=== PATIENT | female | born 1940 | race Caucasian/White ===

== ENCOUNTER 2017-04-13 16:51 | Emergency (ER) | payer MEDICARE, OTHER ==
[~2017-04-13] VITALS: Ht 165.1 cm; Wt 63.5 kg
[~2017-04-13 16:51] MED LIST: ABILIFY5 MG; ACETAMINOPHEN325 M1 PO; ASPIRIN EC325 MG PO; AZITHROMYCIN250 MG PO; CIPRO500 MG PO; COUMADIN1 MG PO; COUMADIN5 MG PO; DIGOXIN125 MCG PO; DILT-XR120 MG PO; DOXYCYCLINE HY100 MG PO; DOXYCYCLINE HYC50 MG PO; ERGOCALCIF50000 UNIT PO; HYDROCHLOROTHIA25 MG PO; METOPROLOL SUCC50 MG; METOPROLOL TAR100 MG PO; METOPROLOL TART25 MG PO; METOPROLOL TART50 MG PO; POTASSIUM CHLO10 MEQ PO; SLOW-MAG71.5 MG PO; TOBRAMYCIN-DEXAM5 ML OPTH; TRIAMCINOLONE A15 GM TOP; VENTOLIN HFA18 GM INH; WARFARIN SODIUM3 MG PO
[2017-04-13] MEDS ORDERED: METHYLPREDNISOLO4 M1 PO (17:34)
== END 2017-04-13 18:03 | disposition home or self-care (01) ==
LOC: ED 16:51
DX: M25.561 Pain in right knee (principal); I10 Essential (primary) hypertension; J45.909 Unspecified asthma, uncomplicated; I48.91 Unspecified atrial fibrillation; Z86.718 Personal history of other venous thrombosis and embolism; Z86.711 Personal history of pulmonary embolism; Z86.14 Personal history of Methicillin resistant Staphylococcus aureus infection; Z90.49 Acquired absence of other specified parts of digestive tract; Z90.710 Acquired absence of both cervix and uterus; Z90.89 Acquired absence of other organs; Z88.1 Allergy status to other antibiotic agents; Z88.5 Allergy status to narcotic agent; Z88.2 Allergy status to sulfonamides; Z88.8 Allergy status to other drugs, medicaments and biological substances; Z79.899 Other long term (current) drug therapy; Z79.01 Long term (current) use of anticoagulants
CPT/HCPCS: 99283

== ENCOUNTER 2017-08-19 10:27 | Emergency (ER) | payer MEDICARE, OTHER ==
[~2017-08-19] VITALS: Ht 165.1 cm; Wt 63.5 kg
--- OUTSIDE RECORDS SUMMARY | ~2017-08-19 | XMS | Clinical Summary ---
Demographics + + + | Address | [address] | | | [place] [address] | + + + | Home Phone | | + + + | Preferred Language | Unknown | + + + | Marital Status | | + + + | Mandaen Affiliation | Unknown | + + + | Race | Unknown | + + + | Ethnic Group | Other Race | + + + Author + + + | Author | [facility] | + + + | Organization | [facility] | + + + | Address | Unknown | + + + | Phone | Unavailable | + + + Care Team Providers + +------+ + | Care Word Processing Specialist Name | Role | Phone | + +------+ + PP | Unavailable | + +------+ + Source Comments SHANITA is fully live on both [facility] and [facility] Allergies Not on File Current Medications Not on file Active Problems Not on file Social History + +-------+ +--------+------+ | Tobacco [...] on file | | + + + Plan of Treatment + + + + + | Health Maintenance | Due Date | Last Done | Comments | + + + + + | INFLUENZA VACCINE | | | | | (FLU SHOT) | 7 | | | + + + + + Results Not on filefrom Last 3 Months"
--- OUTSIDE RECORDS SUMMARY | ~2017-08-19 | XMS | Clinical Summary ---
Demographics + + + | Address | [address] | | | [place] [address] | + + + | Home Phone | | + + + | Preferred Language | Unknown | + + + | Marital Status | | + + + | Voodoo Affiliation | Unknown | + + + [...] Team Providers + +------+ + | Care Commercial Representative Name | Role | Phone | + +------+ + PP | Unavailable | + +------+ + Source Comments SHANITA is fully live on both [facility] and [facility] Allergies Not on File Current Medications Not [...]
[~2017-08-19 10:27] MED LIST changes: +METHYLPREDNISOLO4 M1 PO
[2017-08-19] MEDS ORDERED: NORCO 5-325 TA1 EACH PO (12:22)
[2017-08-19] MEDS ORDERED: CIPRO250 MG PO (14:11)
[2017-10-01] MEDS ORDERED: METOPROLOL SUCC50 MG PO (09:36)
[2017-10-01] MEDS ORDERED: WARFARIN SODIUM1 MG PO (09:37)
[2017-10-01] MEDS ORDERED: ALLOPURINOL300 MG PO (09:37)
[2017-11-24] MEDS ORDERED: FUROSEMIDE20 MG PO (10:46)
[2017-12-08] MEDS ORDERED: FUROSEMIDE40 MG PO (10:01)
[2017-12-08] MEDS ORDERED: POTASSIUM CHLO10 ME1 PO (10:02)
== END 2017-08-19 12:40 | disposition home or self-care (01) ==
LOC: ED 10:27
DX: S00.12XA Contusion of left eyelid and periocular area, initial encounter (principal); S00.11XA Contusion of right eyelid and periocular area, initial encounter; N39.0 Urinary tract infection, site not specified; I10 Essential (primary) hypertension; J45.909 Unspecified asthma, uncomplicated; I48.91 Unspecified atrial fibrillation; Z88.1 Allergy status to other antibiotic agents; Z88.8 Allergy status to other drugs, medicaments and biological substances; Z88.5 Allergy status to narcotic agent; Z79.899 Other long term (current) drug therapy; Z79.01 Long term (current) use of anticoagulants; W22.8XXA Striking against or struck by other objects, initial encounter
CPT/HCPCS: 70450; 70486; 80048; 81001; 85025; 85610; 85730; 87077; 87088; 87186; 99284

== ENCOUNTER 2017-10-23 12:07 | Emergency (ER) | payer MEDICARE, OTHER ==
[~2017-10-23] VITALS: Ht 165.1 cm; Wt 63.5 kg
--- OUTSIDE RECORDS SUMMARY | ~2017-10-23 | XMS | Clinical Summary ---
Demographics + + + | Address | [address] | | | [place] [address] | + + + | Home Phone | | + + + | Preferred Language | Unknown | + + + | Marital Status | | + + + | Confucianist Affiliation | 1076 | + + + | Race | Unknown | + + + | Ethnic Group | Unknown | + + + Author + + + | Author | [facility] | | | and [place] | + + + | Organization | [facility] | | | and [place] | + + + | Address | Unknown | + + + | Phone | Unavailable | + + + Support + + + + + | Name | Relationship | Address | Phone | + + + + + | Lesvia Jernigan | ECON | [address] | | | | | [place] | | | | | [address] | | + + + + + Care Team Providers + +------+ + | Care Electrical Maintenance Mechanic Name | Role | Phone | + [...] + + + Current Medications + + +-------+---------+------+------+-------+ | Prescription | Sig. | Disp. | Refills | Star | End | Statu | | | | | | t | Date | s | | | | | | Date | | | + + +-------+---------+------+------+-------+ | aspirin 325 mg | Take 325 mg by mouth | | | | | Activ | | tablet | Daily. | | | | | e | + + +-------+---------+------+------+-------+ | dilTIAZem | Take 120 mg by mouth | | | | | Activ | | (CARDIZEM) 120 MG | 4 times daily. | | | | | e | | tablet | | | | | | | + + +-------+---------+------+------+-------+ | | Take 25 mg by mouth | | | | | Activ | | hydroCHLOROthiazide | Daily. | | | | | e | | 25 mg tablet | | | | | | | + + +-------+---------+------+------+-------+ | metoprolol | Take 50 mg by mouth | | | | | Activ | | succinate | Daily. | | | | | e | | (TOPROL-XL) 50 mg 24 | | | | | | | | hr tablet | | | | | | | + + +-------+---------+------+------+-------+ | | Take by mouth. | | | | | Activ | | Yxbpdbbdm-Rowtmwj-Df | | | | | | e | | lic Acid 400-200-1 | | | | | | | | MG TABS | | | | | | | + + +-------+---------+------+------+-------+ | triamcinolone | Apply topically 3 | | | | | Activ | [...] | | | | | + + +-------+---------+------+------+-------+ | albuterol | Inhale 2 puffs into | | | | | Activ | | (VENTOLIN HFA) 90 | the lungs every 6 | | | | | e | | mcg/puff inhaler | hours as needed for | | | | | | | | Wheezing. | | | | | | + + +-------+---------+------+------+-------+ | folic acid 1 mg | Take 1 mg by mouth | | | | | Activ | | tablet | Daily. | | | | | e | + + +-------+---------+------+------+-------+ | warfarin | Take 2 mg by mouth | | | | | Activ | | (COUMADIN) 2 mg | Daily. | | | | | e | | tablet | | | | | | | + + +-------+---------+------+------+-------+ | allopurinol | | | | 11/0 | | Activ | | (ZYLOPRIM) 100 mg | | | | 9/20 | | e | | tablet | | | | 17 | | | + + +-------+---------+------+------+-------+ | furosemide (LASIX) | | | | 09/2 | | Activ | | 80 mg tablet | | | | 07/11 | | e | | | | | | 17 | | | + + +-------+---------+------+------+-------+ | | | | | 11/1 | | Activ | | HYDROcodone-acetamin | | | | 09/08 | | e | | ophen (NORCO) 5-325 | | | | 17 | | | | mg per tablet | | | | | | | + + +-------+---------+------+------+-------+ | ketorolac (ACULAR) | | | | 11/2 | | Activ | | 0.4 % SOLN | | | | 01/08 | | e | | | | | | 17 | | | + + +-------+---------+------+------+-------+ | ofloxacin | | | | 11/2 | | Activ | | (OCUFLOX) 0.3% | | | | 5/20 | | e | | ophthalmic solution | | | | 17 | | | + + +-------+---------+------+------+-------+ | potassium chloride | | | | 09/2 | | Activ | | (MICRO-K) 10 mEq CR | | | | 1/20 | | e | | capsule | | | | 17 | | | + + +-------+---------+------+------+-------+ Active Problems + + + | Problem | Noted Date | + + + | Chronic atrial fibrillation (HCC) | 06/01/2017 | + + + | [...] + | Respiratory Rate | 13 | 06/01/2017 1540 PST | + + + + | Oxygen Saturation | 99% | 06/01/2017 1540 PST | + + [...] | | | | (Season Ended) | 8 | | | + + + + + Implants + +--------+--------+ +--------+--------+--------+ | Implanted | Type | Area | Manufacture | Device | Expira | Model | | | | | r | | tion | / | | | | | | Identi | Date | Serial | | | | | | fier | | / Lot | + +--------+--------+ +--------+--------+--------+ | Lens Ultrasert [id number] - | Generi | Right: | [employer] | | 11/19/ | [id number] | | [id number]: Qty: | c | Eye | - ALCN | | 2019 | .15.0 | | 1 on 04/20/2017 by Jeremy | | | | | | /[id number] | | Tony Sparks MD | | | | | | 412 | | | | | | | | 168 / | + +--------+--------+ +--------+--------+--------+ | Lens Ultrasert [id number] - | Generi | | [employer] | | 05/21/ | [id number] | | [id number]: Qty: | c | | - ALCN | | 2018 | .15.5 | | 1 on 06/01/2017 by Jeremy | | | | | | /[id number] | | Tony Sparks MD | | | | | | 376 | | | | | | | | 075 / | + +--------+--------+ +--------+--------+--------+ Results Not on filefrom Last 3 Months Insurance + +--------+ +--------+ +---------+ | Payer | Benefi | Subscriber | Type | Phone | Address | | | t Plan | ID | | | | | | / | | | | | | | Group | | | | | + +--------+ +--------+ +---------+ | [employer] | [employer] | xxxxxxxxxx | Indemn | | | | | [place] | | ity | | | | | LIFE | | | | | | | MDCR | | | | | | | SUPPL | | | | | + +--------+ +--------+ +---------+ | MEDICARE | MEDICA | xxxxxxxxxx | Medica | +1- | | | | RE | | re | [phone] | | | | PART A | | | | | | | AND B | | | | | + +--------+ +--------+ +---------+ + +--------+ +--------+ + + | Guarantor Name | Accoun | Relation to | Date | Phone | Billing Address | | | t Type | Patient | of | | | | | | | | | | + +--------+ +--------+ + + | SHARON ROBERTS | Person | Self [birth year] | Home: | [address] | | | al/Fam | | 1940 | [phone] [place] [address] | | | dulce maria | | | [phone] | | + +--------+ +--------+ + +
--- OUTSIDE RECORDS SUMMARY | ~2017-10-23 | XMS | Clinical Summary ---
Demographics + + + | Address | [address] | | | [place] [address] | + + + | Home Phone | | + + + | Preferred Language | Unknown | + + + | Marital Status | | + + + | Yarsanism Affiliation | 1069 | + + + | Race | Unknown | + + + | Ethnic Group | Unknown | + + + Author + + + | Author | [facility] | + + + | Organization | [facility] | + + + | Address | [...] | | + + +---------+ + | Lamont Parson | ECON | Unknown | | + + +---------+ + Care Team Providers + +------+ + | Care Registered Nurse Surgical Services Name | Role | Phone | + +------+ + | Mj No MD | PP | | + +------+ [...] | | | + + +---------+---------+------+------+-------+ | | Take 1 tablet by | | | | | Activ | | hydrocodone-acetamin | mouth every 6 (six) | | | | | e | | ophen (NORCO) 5-325 | hours as needed. | | | | | | | MG per tablet | | | | | | | + + +---------+---------+------+------+-------+ | Albuterol Sulfate | Inhale into the | | | | | Activ | | (VENTOLIN HFA IN) | lungs as needed. | | | | | e | + + +---------+---------+------+------+-------+ | Loperamide HCl | Take by mouth as | | | | | Activ | | (IMODIUM PO) | needed. | | | | | e | + + +---------+---------+------+------+-------+ | | Take 25 mg by mouth | | | | | Activ | | hydrochlorothiazide | daily. | | | | | e | | (HYDRODIURIL) 25 MG | | | | | | | | tablet | | | | | | | + + +---------+---------+------+------+-------+ | Magnesium Chloride | Take 535 mg by mouth | | | | | Activ | | (SLOW-MAG) 535 (64 | 2 (two) times | | | | | e | | MG) MG CR tablet | daily. | | | | | | + + +---------+---------+------+------+-------+ | aspirin 325 MG EC | Take 325 mg by mouth | | | | | Activ | | tablet | daily. | | | | | e | + + +---------+---------+------+------+-------+ | B COMPLEX [...] | | | | | | | days, [facility] | | | | | | [...] | | | + + +---------+---------+------+------+-------+ | metoprolol | Take 1 tablet by | 180 | 1 | 03/1 | | Activ | | (LOPRESSOR) 100 MG | mouth 2 (two) times | tablet | | 6/20 | | e | | tablet | daily. | | | 16 | | | + + +---------+---------+------+------+-------+ | diltiazem | TAKE ONE CAPSULE BY | 90 | 1 | 12/0 | | Activ | | (CARDIZEM CD) 120 MG | MOUTH EVERY DAY | capsule | | 6/20 | | e | | 24 hr capsule | | | | 16 | | | + + +---------+---------+------+------+-------+ Active Problems [...] | 04/19/2013 | + + + | Wound, open, knee, lower leg, or ankle with complication | 07/29/2011 | + + + + + | Last Assessment & Plan: Continue current wound care. | + + + + + | Neutropenia, unspecified | [...] | + + + + + | Elevated INR | 06/22/2011 | + + + | Cellulitis of left leg | 06/21/2011 | + + + + [...] understanding. 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 Continue Bactrim | | while awaiting progress. Followup in one month with repeat labs | | at that time. The patient was advised to call promptly if she has | | any recurrent redness, swelling, or fevers. 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 | | 75yo WF, with [...] Date | + + + + | Fever, unspecified | 07/03/19 | | | | 12 | 2 | + + + + Family History + + +------+ [...] | Yes | 2 | 1.2 | 2 drinks every day | | | Standard | | | [...] + + + | Blood Pressure | 108/76 | 01/02/2016 4:51 PM PDT | + + + + | Pulse | 75 | 01/02/2016 4:51 PM PDT | + + + + | Temperature | 36.2 C (97.2 F) | 04/19/2013 1:28 PM PDT | + + + + | Respiratory Rate | 17 | 01/02/2016 4:51 PM PDT | + + + + | Oxygen Saturation | 97% | 01/02/2016 4:51 PM PDT | + + + + | Inhaled Oxygen | - | - | | Concentration | | | + + + + | Weight | 75.3 kg (166 lb) | 01/02/2016 4:51 PM PDT | + + + + | Height | 168.9 cm (5' 6.5") | 01/02/2016 4:51 PM PDT | + + + + | Body Mass Index | 26.39 | 01/02/2016 4:51 PM PDT | + + + + Plan [...] +------+-------+ + | MEDICARE | MEDICA | xxxxxxxxxx | | | [address] | | | RE | | | | [place] [address] | | | IP-OP | | | | | + +--------+ +------+-------+ + | COMMERCIAL OTHER | TRANSA | xxxxxxxxx | | | | | | [place]ICA | | | | | | | LIFE | | | | | + +--------+ [...] | Self | [birth year] | Home: | [address] | | | lisa/[place]uan | | 1940 | [phone] | [place] | | | dulce maria | | | [phone] | [phone] | + +--------+ +--------+ + +
--- OUTSIDE RECORDS SUMMARY | ~2017-10-23 | XMS | Clinical Summary ---
Demographics + + + | Address | [address] | | | [place] [address] | + + + | Home Phone | | + + + | Preferred Language | Unknown | + + + | Marital Status | | + + + | Muslim Affiliation | 1076 | + + + | Race | Unknown | + + + | Ethnic Group | Unknown | + + + Author + + + | Author | [facility] | | | and [place] | + + + | Organization | [facility] | | | and [place] | + + + | Address | Unknown | + + + | Phone | Unavailable | + + + Support + + + + + | Name | Relationship | Address | Phone | + + + + + | Lesvia Jernigan | ECON | [address] | | | | | [place] | | | | | [address] | | + + + + + Care Team Providers + +------+ + | Care Photographic Aide Name | Role | Phone | + [...] | | | | Activ | | [id number] | | | | | | e [...] | | 11/19/ | [id number] | | [id number]: Qty: | c | Eye | - ALCN | | 2019 | .15.0 | | 1 on 04/20/2017 by Jeremy | | | | | | /[id number] | | Tony Sparks MD | | | | | | 412 | | | | | | | | 168 / | + +--------+--------+ +--------+--------+--------+ | Lens Ultrasert [id number] - | Generi | | [employer] | | 05/21/ | [id number] | | [id number]: Qty: | c | | - ALCN | | 2018 | .15.5 | | 1 on 06/01/2017 by Jeremy | | | | | | /[id number] | | Tony Sparks MD | | [...] | Self | [birth year] | Home: | [address] | | | al/Fam | | [phone] | [phone] | [place] [address] | | | dulce maria | | | [phone] | | + +--------+ +--------+ + +
--- OUTSIDE RECORDS SUMMARY | ~2017-10-23 | XMS | Clinical Summary ---
Demographics + + + | Address | [address] | | | [place] [address] | + + + | Home Phone | | + + + | Preferred Language | Unknown | + + + | Marital Status | | + + + | Jehovah'S Witness Affiliation | Unknown | + + + [...] Team Providers + +------+ + | Care Therapeutic Activities Services Worker Name | Role | Phone | + +------+ + PP | Unavailable | + +------+ + Source Comments SHANITA is fully live on both [facility] and [facility] Allergies Not on File Current Medications Not [...] | | | | (FLU SHOT) | 8 | | | + + + + + Results Not on filefrom Last 3 Months"
--- OUTSIDE RECORDS SUMMARY | ~2017-10-23 | XMS | Clinical Summary ---
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 Continue Bactrim | | while awaiting progress. Followup in one month with repeat labs | | at that time. The patient was advised to call promptly if she has | | any recurrent redness, swelling, or fevers. 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 | | 75yo WF, [...] | xxxxxxxxxx | | | [address] | | | RE | | | | [place] [address] | | | IP-OP | | | [...] | Self | [birth year] | Home: | [address] | | | lisa/[place]uan | | 1940 | [phone] | [place] | | | dulce maria | | | [phone] | [phone] | + +--------+ +--------+ + +
--- OUTSIDE RECORDS SUMMARY | ~2017-10-23 | XMS | Clinical Summary ---
Demographics + + + | Address | [address] | | | [place] [address] | + + + | Home Phone [...] Team Providers + +------+ + | Care Plate Embosser Name | Role | Phone | + +------+ + PP | Unavailable | + +------+ + Source Comments SHANITA is fully live on both [facility] and [facility] InPatient.[facility] [...]
[~2017-10-23 12:07] MED LIST changes: +ALLOPURINOL300 MG PO; +CIPRO250 MG PO; +METOPROLOL SUCC50 MG PO; +NORCO 5-325 TA1 EACH PO; +WARFARIN SODIUM1 MG PO
[2017-10-23] MEDS ORDERED: CLEOCIN HCL300 MG PO (14:26)
[2017-11-24] MEDS ORDERED: FUROSEMIDE20 MG PO (10:46)
[2017-12-08] MEDS ORDERED: FUROSEMIDE40 MG PO (10:01)
[2017-12-08] MEDS ORDERED: POTASSIUM CHLO10 ME1 PO (10:02)
== END 2017-10-23 14:40 | disposition home or self-care (01) ==
LOC: ED 12:07
DX: L03.116 Cellulitis of left lower limb (principal); D64.9 Anemia, unspecified; I48.0 Paroxysmal atrial fibrillation; I10 Essential (primary) hypertension; J45.909 Unspecified asthma, uncomplicated; Z79.01 Long term (current) use of anticoagulants; Z88.1 Allergy status to other antibiotic agents; Z88.5 Allergy status to narcotic agent; Z88.8 Allergy status to other drugs, medicaments and biological substances; Z79.899 Other long term (current) drug therapy
CPT/HCPCS: 71045; 80053; 83605; 83880; 85025; 85610; 93971; 99284

== ENCOUNTER 2018-10-28 12:49 | Emergency (ER) | payer MEDICARE, OTHER ==
[~2018-10-28] VITALS: Ht 165.1 cm; Wt 59.0 kg
--- OUTSIDE RECORDS SUMMARY | ~2018-10-28 | XMS | Clinical Summary ---
Demographics + + + | Address | [address] | | | [place] [address] | + + + | Home Phone | | + + + | Preferred Language | Unknown | + + + | Marital Status | | + + + | Gnosticist Affiliation | 1069 | + + + | Race | Unknown | + + + | Ethnic Group | Unknown | + + + Author + + + | Author | [facility] | | | and [place] | + + + | Organization | [facility] | | | and [place] | + + + | Address | Unknown | + + + | Phone | Unavailable | + + + Support + + + + + | Name | Relationship | Address | Phone | + + + + + | Lesvia Jernigan | ECON | [address] | | | | | [place] | | | | | [address] | | + + + + + | Lesvia Roberts | ECON | Unknown | | + + + + + | Jef Jernigan | ECON | Unknown | | + + + + + Care Team Providers + +------+ + | Care Dental Hygiene Instructor Name | Role | Phone | + +------+ + | Param Hamm MD | PP | | + +------+ + Allergies + + + + + + | Active Allergy | Reactions | Severity | Noted | Comments | | | | | Date | | + + + + + + | Morphine | Other (See Comments) | Medium | 06/21/20 | | | | | | 11 | | + + + + + + Medications + + + +---------+------+------+-------+ | Medication | Sig | Dispensed | Refills | Star | End | Statu | | | | | | t | Date | s | | | | | | Date | | | + + + +---------+------+------+-------+ | aspirin 325 mg | Take 325 mg by mouth | | 0 | | | Activ | | tablet | Daily. | | | | | e | + + + +---------+------+------+-------+ | dilTIAZem | Take 120 mg by mouth | | 0 | | | Activ | | (CARDIZEM) 120 MG | 4 times daily. | | | | | e | | tablet | | | | | | | + + + +---------+------+------+-------+ | | Take 25 mg by mouth | | 0 | | | Activ | | hydroCHLOROthiazide | Daily. | | | | | e | | 25 mg tablet | | | | | | | + + + +---------+------+------+-------+ | metoprolol | Take 50 mg by mouth | | 0 | | | Activ | | succinate | Daily. | | | | | e | | (TOPROL-XL) 50 mg 24 | | | | | | | | hr tablet | | | | | | | + + + +---------+------+------+-------+ | | Take by mouth. | | 0 | | | Activ | | Nhuwzymyh-Iezpcqd-Uu | | | | | | e | | lic Acid 400-200-1 | | | | | | | | MG TABS | | | | | | | + + + +---------+------+------+-------+ | triamcinolone | Apply topically 3 | | 0 | | | Activ | | (KENALOG) 0.1% cream | times daily as | | | | | e | | (ED prepack) | needed. Apply | | | | | | | | sparingly to | | | | | | | | affected area as | | | | | | | | needed for rash. | | | | | | + + + +---------+------+------+-------+ | albuterol | Inhale 2 puffs into | | 0 | | | Activ | | (VENTOLIN HFA) 90 | the lungs every 6 | | | | | e | | mcg/puff inhaler | hours as needed for | | | | | | | | Wheezing. | | | | | | + + + +---------+------+------+-------+ | folic acid 1 mg | Take 1 mg by mouth | | 0 | | | Activ | | tablet | Daily. | | | | | e | + + + +---------+------+------+-------+ | warfarin | Take 2 mg by mouth | | 0 | | | Activ | | (COUMADIN) 2 mg | Daily. | | | | | e | | tablet | | | | | | | + + + +---------+------+------+-------+ | allopurinol | | | 0 | 11/0 | | Activ | | (ZYLOPRIM) 100 mg | | | | 9/20 | | e | | tablet | | | | 17 | | | + + + +---------+------+------+-------+ | furosemide (LASIX) | | | 0 | 09/2 | | Activ | | 80 mg tablet | | | | 1/20 | | e | | | | | | 17 | | | + + + +---------+------+------+-------+ | | | | 0 | 11/1 | | Activ | | HYDROcodone-acetamin | | | | 3/20 | | e | | ophen (NORCO) 5-325 | | | | 17 | | | | mg per tablet | | | | | | | + + + +---------+------+------+-------+ | ketorolac (ACULAR) | | | 0 | 11/2 | | Activ | | 0.4 % SOLN | | | | 7/20 | | e | | | | | | 17 | | | + + + +---------+------+------+-------+ | ofloxacin | | | 0 | 11/2 | | Activ | | (OCUFLOX) 0.3% | | | | 5/20 | | e | | ophthalmic solution | | | | 17 | | | + + + +---------+------+------+-------+ | potassium chloride | | | 0 | 09/2 | | Activ | | (MICRO-K) 10 mEq CR | | | | 07/11 | | e | | capsule | | | | 17 | | | + + + +---------+------+------+-------+ Active Problems + + + | Problem | Noted Date | + + + | Chronic atrial fibrillation | 06/01/2017 | + + + | Hypertension | 06/01/2017 | + + + | Anticoagulated on Coumadin | 06/01/2017 | + + + | S/P CABG (coronary artery bypass graft) | 06/01/2017 | + + + + + | Overview: 1998; myxoma removed as well | + + + + + | Coronary artery disease | 06/01/2017 | + + + + + | Overview: S/p CABG 1998 | + + Social History + +-------+ +--------+------+ | Tobacco Use | Types | Packs/Day | Years | Date | | | | | Used | | + +-------+ +--------+------+ | Never Smoker | | | | | + +-------+ +--------+------+ + +---+---+---+ | Smokeless Tobacco: | | | | | Never Used | | | | + +---+---+---+ + + +---------+ + | Alcohol Use | Drinks/We | oz/Week | Comments | | | ek | | | + + +---------+ + | Yes | | | | + + +---------+ + + + + | Sex Assigned at [...] recent travel history available. | + + Last Filed Vital Signs + + + + | Vital Sign | Reading | Time Taken | + + + + | Blood Pressure | 136/87 | 06/01/20170 PST | + + + + | Pulse | 92 | 06/01/2017 1540 PST | + + + + | Temperature | 36.4 C (97.5 F) | 06/01/2017 1509 PST | + + + + | Respiratory Rate | 13 | 06/01/20171539 PST | + + + + | Oxygen Saturation | 99% | 06/01/20171539 PST | + + + + | Inhaled Oxygen | - | - | | Concentration | | | + + + + | Weight | 68.7 kg (151 lb 7.3 | 04/20/2017723 PDT | | | oz) | | + + + + | Height | 168.9 cm (5' 6.5") | 04/20/2017723 PDT | + + + + | Body Mass Index | 24.08 | 04/20/2017 0724 PDT | + + + + Plan of Treatment + + + + + | Health Maintenance | Due Date | Last Done | Comments | + + + + + | Vaccine: | | | | | Dtap/Tdap/Td (1 - | 9 | | | | Tdap) | | | | + + + + + | Vaccine: Zoster (1 | | | | | of 2) | 0 | | | + + + + + | Vaccine: | | | | | Pneumococcal 65+ | 5 | | | | Low/Medium Risk (1 | | | | | of 2 - PCV13) | | | | + + + + + | Vaccine: Influenza | | | | | (Season Ended) | 9 | | | + + + + + Implants + +--------+--------+ +--------+--------+--------+ | Implanted | Type | Area | Manufacture | Device | Shelf | Model | | | | | r | | Expira | / | | | | | | Identi | tion | Serial | | | | | | fier | Date | / Lot | + +--------+--------+ +--------+--------+--------+ | Lens Ultrasert [id number] - | Generi | Right: | [employer] | | 11/19/ | [id number] | | [id number]: Qty: | c | Eye | - ALCN | | 2020 | .15.0 | | 1 on 04/20/2017 by Jeremy, | | | | | | /[id number] | | Tony Sparks MD | | | | | | 412 | | | | | | | | 168 / | + +--------+--------+ +--------+--------+--------+ | Lens Ultrasert [id number] - | Generi | | [employer] | | 05/21/ | [id number] | | [id number]: Qty: | c | | - ALCN | | 2019 | .15.5 | | 1 on 06/01/2017 by Jeremy, | | | | | | /[id number] | | Tony Sparks MD | | | | | | 376 | | | | | | | | 075 / | + +--------+--------+ +--------+--------+--------+ Results Not on filefrom Last 3 Months Insurance + +--------+ +--------+ +---------+--------+ | Payer | Benefi | Subscriber | Effect | Phone | Address | Type | | | t Plan | ID | hailey | | | | | | / | | Dates | | | | | | Group | | | | | | + +--------+ +--------+ +---------+--------+ | [employer] | [employer]AT | [id number] | 01/21/20 | | | Indemn | | | [place]HELE | | 17-Pre | | | ity | | | LIFE | | sent | | | | | | MDCR | | | | | | | | SUPPL | | | | | | + +--------+ +--------+ +---------+--------+ | MEDICARE | MEDICA | [id number] | 12/21/19 | [phone] | | Medica | | | RE | | 05-Pre | 5 | | re | | | PART A | | sent | | | | | | AND B | | | | | | + +--------+ +--------+ +---------+--------+ + +--------+ +--------+ + + | Guarantor Name | Accoun | Relation to | Date | Phone | Billing Address | | | t Type | Patient | of | | | | | | | | | | + +--------+ +--------+ + + | Alison Roberts | Person | Self | [birth year] | [address] | | | lisa/[place]uan | | 1940 | [phone] | [place] | | | dulce [place] | | | [address] ([place]) | [address] | + +--------+ +--------+ + + Advance Directives Patient has advance care planning documents, and code status on file. For more information, please contact:[facility] [place] [address] + + + + + | Code Status | Date | Date | Comments | | | Activated | Inactivated | | + + + + + | Full Code | 06/01/2017 | 06/01/2017 | | | | 15:35 | 18:26 | | + + + + + + + + +---+ | | | | | + + + +---+ | Full Code | 04/20/2017 | 04/20/2017 | | | | 9:04 | 13:17 | | + + + +---+
--- OUTSIDE RECORDS SUMMARY | ~2018-10-28 | XMS | Clinical Summary ---
Demographics + + + | Address | [address] | | | [place] [address] | + + + | Home Phone | | + + + | Preferred Language | Unknown | + + + | Marital Status | | + + + | Buddhist Affiliation | 1069 | + + + | Race | Unknown | + + + | Ethnic Group | Unknown | + + + Author + + + | Author | [facility] | + + + | Organization | [facility] | + + + | Address | Unknown | + + + | Phone | Unavailable | + + + Support + + +---------+ + | Name | Relationship | Address | Phone | + + +---------+ + | Lesvia Roberts | ECON | Unknown | | + + +---------+ + | Jef Jernigan | ECON | Unknown | | + + +---------+ + | Lisa Lovell | ECON | Unknown | | + + +---------+ + Care Team Providers + +------+ + | Care Operations Leader Name | Role | Phone | + +------+ + | Pastor Sales DO | PP | | + +------+ + Allergies + + + + + + | Active Allergy | Reactions | Severity | Noted | Comments | | | | | Date | | + + + + + + | Morphine | Hallucinations | Medium | 06/21/20 | | | | | | 11 | | + + + + + + | Sulfa Antibiotics | Hives | High | 04/19/20 | | | | | | 13 | | + + + + + + Current Medications + + +---------+---------+------+------+-------+ | Prescription | Sig. | Disp. | Refills | Star | End | Statu | | | | | | t | Date | s | | | | | | Date | | | + + +---------+---------+------+------+-------+ | potassium chloride | Take 10 mEq by mouth | | | | | Activ | | (K-DUR) 10 MEQ | daily. Indications: | | | | | e | | tabletIndications: | High Blood Pressure | | | | | | | Hypertension | | | | | | | + + +---------+---------+------+------+-------+ | Albuterol Sulfate | Inhale into the | | | | | Activ | | (VENTOLIN HFA IN) | lungs as needed. | | | | | e | + + +---------+---------+------+------+-------+ | Magnesium Chloride | Take 1 tablet by | | | | | Activ | | (SLOW-MAG) 535 (64 | mouth daily. | | | | | e | | MG) MG CR tablet | | | | | | | + + +---------+---------+------+------+-------+ | B COMPLEX VITAMINS | Place under the | | | | | Activ | | SL | tongue daily. | | | | | e | + + +---------+---------+------+------+-------+ | warfarin | Take 3 mg by mouth | | | | | Activ | | (COUMADIN) 3 MG | daily. 1 mg Tues & | | | | | e | | tablet | Thurs., 1.5mg other | | | | | | | | daysSt. Beard | | | | | | | | CC, reg by | | | | | | | | Harris | | | | | | + + +---------+---------+------+------+-------+ | triamcinolone | Apply 0.1 % | | | | | Activ | | (KENALOG) 0.1 % | topically 2 (two) | | | | | e | | cream | times daily. | | | | | | + + +---------+---------+------+------+-------+ | allopurinol | Take 100 mg by mouth | | | | | Activ | | (ZYLOPRIM) 100 MG | daily. | | | | | e | | tablet | | | | | | | + + +---------+---------+------+------+-------+ | furosemide (LASIX) | Take 40 mg by mouth | | | | | Activ | | 40 MG tablet | as needed. | | | | | e | + + +---------+---------+------+------+-------+ | diltiazem | TAKE ONE CAPSULE BY | 90 | 1 | 06/23 | | Activ | | (CARDIZEM CD) 120 MG | MOUTH BID | capsule | | 3/20 | | e | | 24 hr capsule | | | | 19 | | | + + +---------+---------+------+------+-------+ | digoxin (LANOXIN) | Take 1 tablet by | 60 | 1 | /2 | / | Activ | | 0.125 MG tablet | mouth daily. | tablet | | 3/20 | 3/20 | e | | | | | | 19 | 20 | | + + +---------+---------+------+------+-------+ Active Problems + + + | Problem | Noted Date | + + + | HLD (hyperlipidemia) | 09/11/2015 | + + + + + | Last Assessment & Plan: Hyperlipidemia, at her age, she may | | not benefit from medical therapy, although lifestyle changes are | | reasonable. | + + + + + | Rectal prolapse | 04/19/2013 | + + + | Neutropenia, unspecified | 07/06/2011 | + + + + + | Last Assessment & Plan: Recent labs are reassuring, and her | | neutropenia has resolved. Convalescent Mycoplasma serology is | | pending. | + + + + + | Chills with fever | 07/03/2011 | + + + + + | Last Assessment & Plan: This has finally resolved, still | | possibly related to previous therapy with vancomycin or cefepime. | + + + + + | Acute blood loss anemia | 06/25/2011 | + + + | Iron deficiency anemia | 06/23/2011 | + + + | Hx pulmonary embolism | 06/23/2011 | + + + + + | Last Assessment & Plan: Hx recurrent DVT/PE. On warfarin, | | managed by [facility].Hx left leg injury, recurrent DVT, | | with chronic venous stasis, PE. | + + + + + | Chronic atrial fibrillation (HCC) | 06/21/2011 | + + + + + | Last Assessment & Plan: Chronic Atrial fibrillation, CVR, on | | warfarin (Hx left Atrial myxoma), [facility]. | | 75yo WF, with history of atrial myxoma, DVT/PE, atrial | | fibrillation, on warfarin. Today she complains of swelling in | | the legs, not able to get her boots on. However, she does not | | have significant edema, there is no orthopnea or PND. However | | her weight has gone up slightly. There is no significant edema, | | her lungs are clear, clinically she appears to be euvolemic. I | | suggested to her that her weight gain is probably not fluid | | retention, and that caloric restriction and increased activity | | would benefit her. We did not make any changes in her | | medications. 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 | | Global hypokinesis, LVEF 30-40%.Last Echo, 09/09/2013: TDS, RVE, | | LVEF grossly NML, severe RVE, moderate LAE, trace MR, | | mild-moderate TR.Last Stress Test, 08/16/2015: Lexiscan, | | diaphragmatic attenuation, no ischemia, A fib, LVEF 68%.48hr HM, | | 08/16/2015: A fib, 69-168, averaging 89bpm, occ PVC's, no | | pauses.CT-head, 07/12/2015: Mild senescent changes. Mild patchy | | low density in the periventricular white matter implying chronic | | small vessel ischemic changes. No acute infarct, cerebral | | swelling, mass or abnormal extra axial fluid collection.ECG, | | 07/04/2015: A fib, 77bpm, low voltage in limb leads, diffuse | | non-spec ST-T changes. | + + Resolved Problems + + + + | Problem | Noted | Resolved | | | Date | Date | + + + + | Wound, open, knee, lower leg, or ankle with complication | 07/29/19 | | | | 12 | 9 | + + + + + + | Last Assessment & Plan: Continue current wound care. | + + + + + + | Fever, unspecified | 07/03/19 | | | | 12 | 2 | + + + + | Elevated INR | 06/22/19 | | | | 12 | 9 | + + + + | Cellulitis of left leg | 06/21/20 | | | | 11 | 9 | + + + + + + | Last Assessment & Plan: There are no signs of ongoing | | cellulitis on the left leg, having been off antibiotics now for | | approximately 4 weeks.Wound care is ongoing, and she has had | | followup with plastics. We will plan to followup in 2 months to | | review clinical progress. She has followup with plastics at that | | time as well. She was advised to monitor for any worsening | | redness and to call promptly if she has fevers, redness, pain. | | The patient expressed understanding. 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 Continue Bactrim | | while awaiting progress. Followup in one month with repeat labs | | at that time. The patient was advised to call promptly if she has | | any recurrent redness, swelling, or fevers. | + + Family History + + +------+ + | Medical History | Relation | Name | Comments | + + +------+ + | Diabetes type II | Brother | | | + + +------+ + | Diabetes type II | Father | | | + + +------+ + | Heart disease | Father | | | + + +------+ + | High cholesterol | Father | | | + + +------+ + | Hypertension | Father | | | + + +------+ + | Stroke | Father | | | + + +------+ + | Heart disease | Mother | | | + + +------+ + | Hypertension | Mother | | | + + +------+ + + +------+ + + | Relation | Name | Status | Comments | + +------+ + + | Brother | | | | + +------+ + + | Father | | | DMII,heart disease,HTN,CVA | | | | (Age | | | | | 97) | | + +------+ + + | Mother | | | heart disease, HTN | | | | (Age | | | | | 101) | | + +------+ + + Social History + +-------+ +--------+------+ [...] + + +---------+ + | Yes | 2 | 1.2 | occ | | | Standard | | | | | drinks or | | | | | | | | | | equivalen | | | | | t | | | + + +---------+ + + + + | Sex Assigned at | Date Recorded | | | | + + + | Not on file | | + + + Last Filed Vital Signs + + + + | Vital Sign | Reading | Time Taken | + + + + | Blood Pressure | 104/60 | 07/14/2018 1:32 PM PST | + + + + | Pulse | 108 | 07/14/2018 1:32 PM PST | + + + + | Temperature | 36.2 C (97.2 F) | 04/19/2013 1:28 PM PDT | + + + + | Respiratory Rate | 17 | 01/02/2016 4:51 PM PDT | + + + + | Oxygen Saturation | 99% | 07/14/2018 1:32 PM PST | + + + + | Inhaled Oxygen | - | - | | Concentration | | | + + + + | Weight | 64 kg (141 lb 3.2 | 07/14/2018 1:32 PM PST | | | oz) | | + + + + | Height | 168.9 cm (5' 6.5") | 07/14/2018 1:32 PM PST | + + + + | Body Mass Index | 22.45 | 07/14/2018 1:32 PM PST | + + + + Plan of Treatment +--------+---------+ + + + | Date | Type | Specialty | Care Team | Description | +--------+---------+ + + + | 01/05/ | Office | | Lizzy Poon, | | | 2019 | Visit | | MD Malik Garcia | | | | | | Dr [address], | | | | | | [place] [address] | | | | | | [phone] | | | | | | | | +--------+---------+ + + + + + + + + | Health [...] | + + + + + | DEXA SCAN SCREENING | | | | | | 5 | | | + + + + + | Vaccine: | | | | | Pneumococcal 65+ | 5 | | | | Low/Medium Risk (1 | | | | | of 2 - PCV13) | | | | + + + + + | Statin Therapy | | | | | (optimal intensity) | 7 | | | + + + + + | Vaccine: Influenza | | | | | (Season Ended) | 9 | | | + + + + + Results Not on filefrom Last 3 Months Insurance + +--------+ +------+-------+ + | Payer | Benefi | Subscriber | Type | Phone | Address | | | t Plan | ID | | | | | | / | | | | | | | Group | | | | | + +--------+ +------+-------+ + | MEDICARE | MEDICA | [id number] | | | [address] | | | RE | | | | [place] [address] | | | IP-OP | | | | | + +--------+ +------+-------+ + | COMMERCIAL OTHER | COMMER | [id number] | | | | | | CIAL | | | | | | | GENERI | | | | | | | C PLAN | | | | | + +--------+ +------+-------+ + + +--------+ +--------+ + + | Guarantor Name | Accoun | Relation to | Date | Phone | Billing Address | | | t Type | Patient | of | | | | | | | | | | + +--------+ +--------+ + + | SHARON ROBERTS | Person | Self [birth year] | Home: | [address] | | | al/Fam | | 1940 | [phone] [place] | | | dulce maria | | | [phone] | [phone] | + +--------+ +--------+ + +
--- OUTSIDE RECORDS SUMMARY | ~2018-10-28 | XMS | Clinical Summary ---
Demographics + + + | Address | [address] | | | [place] [address] | + + + | Home Phone | | + + + | Preferred Language | Unknown | + + + | Marital Status | | + + + | Religion Affiliation | Unknown | + + + [...] Team Providers + +------+ + | Care Wastewater Supervisor Name | Role | Phone | + +------+ + PP | Unavailable | + +------+ + Source Comments SHANITA is fully live on both [facility] Ambulatory and [facility] InPatient.[facility] Allergies Not on File Current Medications Not [...]
--- OUTSIDE RECORDS SUMMARY | ~2018-10-28 | XMS | Clinical Summary ---
Demographics + + + | Address | [address] | | | [place] [address] | + + + | Home Phone | | + + + | Preferred Language | Unknown | + + + | Marital Status | | + + + | Confucianist Affiliation | 1069 | + + + | Race | Unknown | + + + | Ethnic Group | Unknown | + + + Author + + + | Author | [facility] | | | and [place] | + + + | Organization | [facility] | | | and [place] | + + + | Address | Unknown | + + + | Phone | Unavailable | + + + Support + + + + + | Name | Relationship | Address | Phone | + + + + + | Lesvia Jernigan | ECON | [address] | | | | | [place] | | | | | [address] | | + + + + + | Lesvia Roberts | ECON | Unknown | | + + + + + | Jef Jernigan | ECON | Unknown | | + + + + + Care Team Providers + +------+ + | Care Electroplater Helper Name | Role | Phone | + [...] 0 | | | Activ | | Dgsinqytl-Zloswdj-Fk | | | | | | e [...] | | 11/19/ | [id number] | | [id number]: Qty: | c | Eye | - ALCN | | 2020 | .15.0 | | 1 on 04/20/2017 by Jeremy, | | | | | | /[id number] | | Tony Sparks MD | | | | | | 412 | | | | | | | | 168 / | + +--------+--------+ +--------+--------+--------+ | Lens Ultrasert [id number] - | Generi | | [employer] | | 05/21/ | [id number] | | [id number]: Qty: | c | | - ALCN | | 2019 | .15.5 | | 1 on 06/01/2017 by Jeremy, | | | | | | /[id number] | | Tony Sparks MD | | [...] +---------+--------+ | [employer] | [employer]AT | [id number] | 01/21/20 | | | Indemn | | | MICHELE | | 17-Pre | | | ity | | | LIFE | | sent | | | | | | MDCR | | | | | | | | SUPPL | | | | | | + +--------+ +--------+ +---------+--------+ | MEDICARE | MEDICA | [id number] | 12/21/19 | [phone] | | Medica [...] Person | Self | [birth year] | | [address] | | | lisa/Huan | | 1940 | [phone] | [place] | | | dulce [place] | | | 2 ([place]) | [address] | + +--------+ +--------+ + + Advance Directives Patient has advance care planning documents, and code status on file. For more information, please contact:[facility] [address] + + + + + | Code [...]
--- OUTSIDE RECORDS SUMMARY | ~2018-10-28 | XMS | Clinical Summary ---
Demographics + + + | Address | [address] | | | [place] [address] | + + + | Home Phone | | + + + | Preferred Language | Unknown | + + + | Marital Status | | + + + | Sikh Affiliation | Unknown | + + + [...] Team Providers + +------+ + | Care Wringer Operator Name | Role | Phone | + +------+ + PP | Unavailable | + +------+ + Source Comments SHANITA is fully live on both [facility] Ambulatory and [facility] InPatient.[facility] Allergies Not on File Current Medications Not [...]
--- OUTSIDE RECORDS SUMMARY | ~2018-10-28 | XMS | Clinical Summary ---
Demographics + + + | Address | [address] | | | [place] [address] | + + + | Home Phone | | + + + | Preferred Language | Unknown | + + + | Marital Status | | + + + | Hindu Affiliation | 1069 | + + + | Race | Unknown | + + + | Ethnic Group | Unknown | + + + Author + + + | Author | [facility] | + + + | Organization | [facility] | + + + | Address [...] Team Providers + +------+ + | Care Head Of Ethics And Compliance Name | Role | Phone | + [...] | | warfarin (Hx left Atrial myxoma), [facility]. 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
[~2018-10-28 12:49] MED LIST changes: +ALLOPURINOL100 MG PO; +CLEOCIN HCL300 MG PO; +DIGITEK125 MCG PO; +DILTIAZEM 24HR120 MG PO; +FERROUS SULFAT325 MG PO; +FOLIC ACID1 MG PO; +FUROSEMIDE20 MG PO; +FUROSEMIDE40 MG PO; +HYDROXYZINE HCL10 MG PO; +LIDOCAINE35.44 GM TOP; +POTASSIUM CHLO10 ME1 PO; +PROVENTIL HFA6.7 GM INH; +VISTARIL25 MG PO; +VITAMIN D250000 UNIT PO; +WARFARIN SODIUM2 MG PO
--- OUTSIDE RECORDS SUMMARY | 2018-10-28 12:52 | XMS ---
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 Care History Medical/Surgical 04/28/2018 [facility] - Patient is currently established with [facility]. If patient is seen in the ED during business hours. Please contact [facility] at [facility]. Care Recommendation: This patient has had 5 or more Emergency Department visits in the last 12 months.\T\nbsp; Patient requires education on the scope and purpose of the ED as an acute care provider not a Primary Care Provider and should not be utilized for chronic conditions.\T\nbsp; These are guidelines and the provider should exercise clinical judgment when providing care. E.D. VISIT COUNT (12 MO.) 2 SILVIANO Neil TOTAL 2 NOTE: Visits indicate total known visits. ED/UCC VISIT TRACKING (12 MO.) 10/28/2018 12:50 [facility]O [place] TYPE: Emergency COMPLAINT: - WEAKNESS 04/27/2018 17:13 [facility] [place] TYPE: Emergency COMPLAINT: - ABNORMAL LABS INPATIENT VISIT TRACKING (12 MO.) 08/03/2018 05:56 Flory Nicolas [place] TYPE: Oncology DIAGNOSES: - Rectal prolapse 04/27/2018 17:14 [facility] [place] TYPE: Observation COMPLAINT: - ANEMIA DIAGNOSES: - Other pancytopenia - Gout, unspecified - Personal history of other venous thrombosis and embolism - Anemia, unspecified - Unspecified asthma, uncomplicated - Pruritus, unspecified - Allergy status to other drugs, medicaments and biological substances status - Rectal prolapse - Essential (primary) hypertension - Personal history of Methicillin resistant Staphylococcus aureus infection - Chronic atrial fibrillation - detention (current) use of anticoagulants - Other fci (current) drug therapy - Allergy status to other antibiotic agents status - Acute posthemorrhagic anemia - Personal history of pulmonary embolism [id number]
--- NOTE | 2018-10-29 00:53 | EKG ---
[facility] [address] [facility] [place] [address] Signed Atrial fibrillation Nonspecific ST and T wave abnormality Abnormal ECG No previous ECGs available Confirmed by OLIVA GOLDMAN MD ([id number]) on 10/29/2018 12:53:24 AM Electronically Signed By: OLIVA GOLDMAN MD 10/29/18 0053 PATIENT NAME: SHARON CORTEZ Electrocardiogram DATE OF : 40 PHYSICIAN: OLIVA GOLDMAN MD REPORT #: [id number] REPORT IS CONFIDENTIAL AND NOT TO BE RELEASED WITHOUT AUTHORIZATION
== END 2018-10-28 15:18 | disposition home or self-care (01) ==
LOC: ED 12:49
DX: R53.1 Weakness (principal); I10 Essential (primary) hypertension; J45.909 Unspecified asthma, uncomplicated; I48.91 Unspecified atrial fibrillation; Z86.711 Personal history of pulmonary embolism; Z90.710 Acquired absence of both cervix and uterus; Z90.49 Acquired absence of other specified parts of digestive tract; Z88.5 Allergy status to narcotic agent; Z88.1 Allergy status to other antibiotic agents; Z79.01 Long term (current) use of anticoagulants; Z79.899 Other long term (current) drug therapy
CPT/HCPCS: 80053; 80162; 84484; 85025; 93005; 93010; 99285-25

== ENCOUNTER 2018-11-20 08:39 | Emergency (ER) | payer MEDICARE, OTHER ==
[~2018-11-20] VITALS: Ht 165.1 cm; Wt 59.0 kg
--- OUTSIDE RECORDS SUMMARY | ~2018-11-20 | XMS | Encounter Summary ---
Demographics + + + | Address | [address] | | | [place] [address] | + + + | Home Phone | | + + + | Preferred Language | Unknown | + + + | Marital Status | | + + + | Hinduism Affiliation | Unknown | + + + | Race | Unknown | + + + | Ethnic Group | Other Race | + + + Author + + + | Author | [facility] | + + + | Organization | [facility] | + + + | Address | Unknown | + + + | Phone | Unavailable | + + + Care Team Providers + +------+ + | Care Poultry Barn Manager Name | Role | Phone | + +------+ + PCP | Unavailable | + +------+ + Reason for Visit + + + | Reason | Comments | + + + | Care Questions | | + + + Encounter Details +--------+ + + + + | Date | Type | Department | Care Team | Description | +--------+ + + + + | 07/06/ | Telephone | [facility] | Tony Craft, | Care Questions | | 2016 | | Medical Clinic | MD [address] | | | | | [address] | [place] [address] | | | | | [address] | [phone] | | | | | [place] | | | | | | [address] | | | | | | [phone] | | | +--------+ + + + + Social History + +-------+ +--------+------+ | Tobacco Use | Types | Packs/Day | Years | Date | | | | | Used | | + +-------+ +--------+------+ | Never Assessed | | | | | + +-------+ +--------+------+ + + + | Sex Assigned at | Date Recorded | | | | + + + | Not on file | | + + + + + + + | Job Start Date | Occupation | Industry | + + + + | Not on file | Not on file | Not on file | + + + + + + + + | Travel History | Travel Start | Travel End | + + + + + + | No recent travel history available. | + + documented as of this encounter Plan of Treatment Not on filedocumented as of this encounter Visit Diagnoses Not on filedocumented in this encounter"
--- OUTSIDE RECORDS SUMMARY | ~2018-11-20 | XMS | Encounter Summary ---
Demographics + + + | Address | [address] | | | [place] [address] | + + + | Home Phone | | + + + | Preferred Language | Unknown | + + + | Marital Status | | + + + | Hindu Affiliation | Unknown | + + + | Race | Unknown | + + + | Ethnic Group | Other Race | + + + Author + + + | Author | [facility] | + + + | Organization | [facility] | + + + | Address | Unknown | + + + | Phone | Unavailable | + + + Care Team Providers + +------+ + | Care Incinerator Plant Laborer Name | Role | Phone | + [...] | [address] | [place] [address] | | | | | [address] | [phone] | | | | | [place] | | | | | | [address] | | | | | | [phone] | | | +--------+ + + + [...]
--- OUTSIDE RECORDS SUMMARY | ~2018-11-20 | XMS | Clinical Summary ---
Demographics + + + | Address | [address] | | | [place] [address] | + + + | Home Phone | | + + + | Preferred Language | Unknown | + + + | Marital Status | | + + + | Synagogue Affiliation | Unknown | + + + [...] Team Providers + +------+ + | Care Casserole Preparer Name | Role | Phone | + +------+ + PP | Unavailable | + +------+ + Source Comments SHANITA is fully live on both [facility] Ambulatory and [facility] InPatient.[facility] Allergies Not on File Medications Not on file Active Problems Not [...] recent travel history available. | + + Plan of Treatment + + + + + | Health Maintenance | Due Date | Last Done | Comments | + + + + + | Pneumococcal (Adult) | | | | | (1 of 2 - PCV13) | 5 | | | + + + + + | Influenza (Flu) | | | | | vaccination (Season | 9 | | | | Ended) | | | | + + + + + Results Not on filefrom Last 3 Months"
--- OUTSIDE RECORDS SUMMARY | ~2018-11-20 | XMS | Clinical Summary ---
Demographics + + + | Address | [address] | | | [place] [address] | + + + | Home Phone | | + + + | Preferred Language | Unknown | + + + | Marital Status | | + + + | Taoism Affiliation | 1069 | + + + | Race | Unknown | + + + | Ethnic Group | Unknown | + + + Author + + + | Author | [facility] | | | and [place] | + + + | Organization | [facility] | | | and [place] | + + + | Address | Unknown | + + + | Phone | Unavailable | + + + Support + + + + + | Name | Relationship | Address | Phone | + + + + + | Lesvia Jernigan | ECON | [address] | | | | | [address] | | | | | [address] | | + + + + + | Lesvia Roberts | ECON | Unknown | | + + + + + | Jef Jernigan | ECON | Unknown | | + + + + + Care Team Providers + +------+ + | Care Guest Laundry Attendant Name | Role | Phone | + +------+ + | Malcolm Cervantes MD | PP | | + +------+ + Allergies + + + + + + | Active Allergy | Reactions | Severity | Noted | Comments | | | | | Date | | + + + + + + | Cephalexin | Rash | Low | 08/03/19 | | | | | | 19 | | + + + + + + | Codeine | Rash | Low | 08/03/19 | | | | | | 19 | | + + + + + [...] 0 | | | Activ | | Krggrlpmm-Dmxvuyg-Vp | | | | | | e [...] 10 mEq CR | | | | 1/20 | | e | | capsule | | | | 17 | | | + + + +---------+------+------+-------+ | digoxin (LANOXIN) | Take 125 mcg by | | 0 | 01/2 | | Activ | | 125 mcg tablet | mouth Daily. | | | 3/20 | | e | | | | | | 19 | | | + + + +---------+------+------+-------+ | Magnesium 500 MG | Take 500 mg by mouth | | 0 | | | Activ | | CAPS | Daily. | | | | | e | + + + +---------+------+------+-------+ | Loperamide HCl | Take by mouth as | | 0 | | | Activ | | (IMODIUM PO) | needed. | | | | | e | + + + +---------+------+------+-------+ | ergocalciferol | Take 50,000 Units by | | 0 | | | Activ | | (VITAMIN D-2) 50,000 | mouth Once a week. | | | | | e | | units capsule | | | | | | | [...] + + + | Overview: S/p CABG 1999 | + + Encounters +--------+ + + + + | Date | Type | Specialty | Care Team | Description | +--------+ + + + + | 11/17/ | Hospital | | Brian Dominguez, | Iron deficiency | | 2018 | Encounter | | MD | anemia, unspecified | | | | | | iron deficiency | | | | | | anemia type (Primary | | | | | | Dx) | +--------+ + + + + from Last 3 Months Family History + +------+ + + | Relation | Name | Status | Comments | + +------+ + + | Father | | | | + +------+ + + | Mother | | | | + +------+ + + Social [...] +---------+ + | Yes | | | occasional | + + +---------+ + + + [...] + | Blood Pressure | 136/87 | 06/01/2017 1540 PST | + + [...] | Body Mass Index | 24.08 | 04/20/2017723 PDT | + + + + Plan of Treatment +--------+ + + + + | Date | Type | Specialty | Care Team | Description | +--------+ + + + + | 06/05/ | Hospital | | Brian Dominguez, | | | 2019 | Encounter | | [address] | | | | | | [place] | | | | | | [address] | | | | | | [phone] | | | | | | | | +--------+ + + + + + + + [...] | + + + + + | Adult Annual | | | | | Wellness Visit | 9 | | | + + + + + | Statin Therapy | | | | | (optimal intensity) | 9 | | | + + [...] | | 11/19/ | [id number] | | [id number]: Qty: | c | Eye | - ALCN | | 2020 | .15.0 | | 1 on 04/20/2017 by Jeremy, | | | | | | /[id number] | | Tony Sparks MD | | | | | | 412 | | | | | | | | 168 / | + +--------+--------+ +--------+--------+--------+ | Lens Ultrasert Au00t0.15.5 - | Generi | | [facility] | | 05/21/ | [id number] | | [id number]: Qty: | c | | - ALCN | | 2019 | .15.5 | | 1 on 06/01/2017 by Jeremy, | | | | | | /[id number] | | Tony Sparks MD | | [...] +--------+ +---------+--------+ | MEDICARE | MEDICA | [id number] | 12/21/19 | [phone] | | Medica | | | RE | | 05-Pre | 5 | | re | | | PART A | | sent | | | | | | AND B | | | | | | + +--------+ +--------+ +---------+--------+ | [place] [employer] | [employer] | [id number] | 01/21/20 | | | Indemn | [...] Person | Self | [birth year] | [address] | | | al/Fam | | 1940 | [phone] | [place] | | | dulce maria | | | 2 (Home) | [address] | + +--------+ +--------+ + + Advance Directives Patient has advance care planning documents, and code status on file. For more information, please contact:[facility] [place] [address] + + + + + | Code [...]
--- OUTSIDE RECORDS SUMMARY | ~2018-11-20 | XMS | Encounter Summary ---
Demographics + + + | Address | [address] | | | [place] [address] | + + + | Home Phone | | + + + | Preferred Language | Unknown | + + + | Marital Status | | + + + | Taoist Affiliation | Unknown | + + + | Race | Unknown | + + + | Ethnic Group | Other Race | + + + Author + + + | Author | [facility] | + + + | Organization | [facility] | + + + | Address | Unknown | + + + | Phone | Unavailable | + + + Care Team Providers + +------+ + | Care Performance Management Consultant Name | Role | Phone | + +------+ + PCP | Unavailable | + +------+ + Reason for Visit + + + | Reason | Comments | + + + | Chart Abstract | | + + + Encounter Details +--------+ + + + + | Date | Type | Department | Care Team | Description | +--------+ + + + + | 04/23/ | Telephone | [facility] | Tony Craft, | Chart Abstract | | 2015 | | Medical Clinic | MD [address] | | | | | [address] | [place] [address] | | | | | [address] | [phone] | | | | | [place] | | | | | | [address] | | | | | | [phone] | | | +--------+ + + + [...]
--- OUTSIDE RECORDS SUMMARY | ~2018-11-20 | XMS | Encounter Summary ---
Demographics + + + | Address | [address] | | | [place] [address] | + + + | Home Phone | | + + + | Preferred Language | Unknown | + + + | Marital Status | | + + + | Zoroastrian Affiliation | Unknown | + + + | Race | Unknown | + + + | Ethnic Group | Other Race | + + + Author + + + | Author | [facility] | + + + | Organization | [facility] | + + + | Address | Unknown | + + + | Phone | Unavailable | + + + Care Team Providers + +------+ + | Care Precision Agronomist Name | Role | Phone | + +------+ + PCP | Unavailable | + +------+ + Reason for Visit + + + | Reason | Comments | + + + | Question | | + + + Encounter Details +--------+ + + + + | Date | Type | Department | Care Team | Description | +--------+ + + + + | 05/23/ | Telephone | [facility] | Tony Craft, | Question | | 2014 | | Medical Clinic | [address] | | | | | [address] | [place] [address] | | | | | [address] | [phone] | | | | | [place], [place] | | | | | | [address] | | | | | | [phone] | | | +--------+ + + + [...]
--- OUTSIDE RECORDS SUMMARY | ~2018-11-20 | XMS | Encounter Summary ---
Demographics + + + | Address | [address] | | | [place] [address] | + + + | Home Phone | | + + + | Preferred Language | Unknown | + + + | Marital Status | | + + + | Buddhist Affiliation | Unknown | + + + | Race | Unknown | + + + | Ethnic Group | Other Race | + + + Author + + + | Author | [facility] | + + + | Organization | [facility] | + + + | Address | Unknown | + + + | Phone | Unavailable | + + + Care Team Providers + +------+ + | Care Code Enforcement Officer Name | Role | Phone | + [...] | [address] | [place] [address] | | | | | [address] | [phone] | | | | | [place] | | | | | | [address] | | | | | | [phone] | | | +--------+ + + + [...]
--- OUTSIDE RECORDS SUMMARY | ~2018-11-20 | XMS | Encounter Summary ---
Demographics + + + | Address | [address] | | | [place] [address] | + + + | Home Phone | | + + + | Preferred Language | Unknown | + + + | Marital Status | | + + + | Christianity Affiliation | Unknown | + + + | Race | Unknown | + + + | Ethnic Group | Other Race | + + + Author + + + | Author | [facility] | + + + | Organization | [facility] | + + + | Address | Unknown | + + + | Phone | Unavailable | + + + Care Team Providers + +------+ + | Care Strategic Account Executive Name | Role | Phone | + +------+ + PCP | Unavailable | + +------+ + Reason for Visit + + + | Reason | Comments | + + + | Medication Question | | + + + | Care Questions | | + + + Encounter Details +--------+ + + + + | Date | Type | Department | Care Team | Description | +--------+ + + + + | 05/22/ | Telephone | [facility] | Tony Craft, | Medication Question; | | 2014 | | Medical Clinic | [address] | Care Questions | | | | Cardiology [address] | [place] [address] | | | | | [address] | [phone] | | | | | [place], [place] | | | | | | [address] | | | | | | [phone] | | | +--------+ + + + [...]
--- OUTSIDE RECORDS SUMMARY | ~2018-11-20 | XMS | Encounter Summary ---
Demographics + + + | Address | [address] | | | [place] [address] | + + + | Home Phone | | + + + | Preferred Language | Unknown | + + + | Marital Status | | + + + | Islam Affiliation | Unknown | + + + | Race | Unknown | + + + | Ethnic Group | Other Race | + + + Author + + + | Author | [facility] | + + + | Organization | [facility] | + + + | Address | Unknown | + + + | Phone | Unavailable | + + + Care Team Providers + +------+ + | Care Director Of Brand Marketing Name | Role | Phone | + +------+ + PCP | Unavailable | + +------+ + Reason for Visit + + + | Reason | Comments | + + + | Refill Request | | + + + Encounter Details +--------+--------+ + + + | Date | Type | Department | Care Team | Description | +--------+--------+ + + + | 07/25/ | Refill | [facility] | Tony Craft, | Refill Request | | 2015 | | Medical Clinic | [address] | | | | | [address] | [place] [address] | | | | | [address] | [phone] | | | | | [place], [place] | | | | | | [address] | | | | | | [phone] | | | +--------+--------+ + + + Social History + +-------+ [...]
--- OUTSIDE RECORDS SUMMARY | ~2018-11-20 | XMS | Encounter Summary ---
Demographics + + + | Address | [address] | | | [place] [address] | + + + | Home Phone | | + + + | Preferred Language | Unknown | + + + | Marital Status | | + + + | Baptism Affiliation | Unknown | + + + | Race | Unknown | + + + | Ethnic Group | Other Race | + + + Author + + + | Author | [facility] | + + + | Organization | [facility] | + + + | Address | Unknown | + + + | Phone | Unavailable | + + + Care Team Providers + +------+ + | Care Nursing Clerk Name | Role | Phone | + +------+ + PCP | Unavailable | + +------+ + Encounter Details +--------+ + + + + | Date | Type | Department | Care Team | Description | +--------+ + + + + | 07/31/ | Document-Sc | [facility] | Tony Craft, | | | 2015 | ann[facility]es[facility] | Medical Clinic | [address] | | | | | [address] | [place] [address] | | | | | [address] | [phone] | | | | | [place], [place] | | | | | | [address] | | | | | | [phone] | | | +--------+ + + + [...]
--- OUTSIDE RECORDS SUMMARY | ~2018-11-20 | XMS | Encounter Summary ---
Demographics + + + | Address | [address] | | | [place] [address] | + + + | Home Phone | | + + + | Preferred Language | Unknown | + + + | Marital Status | | + + + | Islam Affiliation | Unknown | + + + | Race | Unknown | + + + | Ethnic Group | Other Race | + + + Author + + + | Author | [facility] | + + + | Organization | [facility] | + + + | Address | Unknown | + + + | Phone | Unavailable | + + + Care Team Providers + +------+ + | Care Market Development Trainer Name | Role | Phone | + [...] | Cardiology [address] | [place] [address] | | | | | [address] | [phone] | | | | | [place], [place] | | | | | | [address] | | | | | | [phone] | | | +--------+ + + + [...]
--- OUTSIDE RECORDS SUMMARY | ~2018-11-20 | XMS | Encounter Summary ---
Demographics + + + | Address | [address] | | | [place] [address] | + + + | Home Phone | | + + + | Preferred Language | Unknown | + + + | Marital Status | | + + + | Orthodox Affiliation | Unknown | + + + | Race | Unknown | + + + | Ethnic Group | Other Race | + + + Author + + + | Author | [facility] | + + + | Organization | [facility] | + + + | Address | Unknown | + + + | Phone | Unavailable | + + + Care Team Providers + +------+ + | Care Trade Recruiter Name | Role | Phone | + +------+ + PCP | Unavailable | + +------+ + Encounter Details +--------+ + + + + | Date | Type | Department | Care Team | Description | +--------+ + + + + | 04/26/ | Document-Sc | [facility] | Tony Craft, | | | 2014 | annzeeshan | Medical Clinic | [address] | | | | | [address] | [place] [address] | | | | | [address] | [phone] | | | | | [place], [place] | | | | | | [address] | | | | | | [phone] | | | +--------+ + + + [...]
--- OUTSIDE RECORDS SUMMARY | ~2018-11-20 | XMS | Encounter Summary ---
Demographics + + + | Address | [address] | | | [place] [address] | + + + | Home Phone | | + + + | Preferred Language | Unknown | + + + | Marital Status | | + + + | Jewish Affiliation | Unknown | + + + | Race | Unknown | + + + | Ethnic Group | Other Race | + + + Author + + + | Author | [facility] | + + + | Organization | [facility] | + + + | Address | Unknown | + + + | Phone | Unavailable | + + + Care Team Providers + +------+ + | Care Android Ios Developer Name | Role | Phone | + [...] | [address] | [place] [address] | | | | | [address] | [phone] | | | | | [place], [place] | | | | | | [address] | | | | | | [phone] | | | +--------+ + + + [...]
--- OUTSIDE RECORDS SUMMARY | ~2018-11-20 | XMS | Encounter Summary ---
Demographics + + + | Address | [address] | | | [place] [address] | + + + | Home Phone | | + + + | Preferred Language | Unknown | + + + | Marital Status | | + + + | Judaism Affiliation | Unknown | + + + | Race | Unknown | + + + | Ethnic Group | Other Race | + + + Author + + + | Author | [facility] | + + + | Organization | [facility] | + + + | Address | Unknown | + + + | Phone | Unavailable | + + + Care Team Providers + +------+ + | Care Storekeeper Steward Name | Role | Phone | + [...] | | [address] | [place] [address] | | | | | [address] | [phone] | | | | | [place], [place] | | | | | | [address] | | | | | | [phone] | | | +--------+--------+ + + + [...]
--- OUTSIDE RECORDS SUMMARY | ~2018-11-20 | XMS | Encounter Summary ---
Demographics + + + | Address | [address] | | | [place] [address] | + + + | Home Phone | | + + + | Preferred Language | Unknown | + + + | Marital Status | | + + + | Cheondoism Affiliation | 1069 | + + + | Race | Unknown | + + + | Ethnic Group | Unknown | + + + Author + + + | Author | [facility] | | | and [place] | + + + | Organization | [facility] | | | and [place] | + + + | Address | Unknown | + + + | Phone | Unavailable | + + + Support + + + + + | Name | Relationship | Address | Phone | + + + + + | Lesvia Jernigan | ECON | [address] | | | | | [place] | | | | | [address] | | + + + + + | Lesvia Roberts | ECON | Unknown | | + + + + + | Jef Jernigan | ECON | Unknown | | + + + + + Care Team Providers + +------+ + | Care Cafeteria Aide Name | Role | Phone | + +------+ + | Malcolm Cervantes MD | PCP | | + +------+ + Reason for Visit Evaluate & Treat (Routine) + + + + + + + | Status | Reason | Specialty | Diagnoses / | Referred By | Referred To | | | | | Procedures | Contact | Contact | + + + + + + + | Authorized | Specialty | Oncology | Diagnoses | Billy, | Angelica, | | | Services | | Anemia | Malcolm Gill MD | Brian Cardona MD | | | Required | | Procedures | [address] | [address] | | | | | MD OFFICE | Chirag Winston | [place] | | | | | OUTPATIENT | [place], | [place] | | | | | VISIT 25 | [place] [address] | [address] | | | | | MINUTES | Phone: | Phone: | | | | | | [phone] | [phone] | | | | | | Fax: | Fax: | | | | | | [phone] | [phone] | + + + + + + + Encounter Details +--------+ + + + + | Date | Type | Department | Care Team | Description | +--------+ + + + + | 11/17/ | Hospital | [facility] | Brian Dominguez, | Iron deficiency | | 2018 | Encounter | [facility] | MD Jessy FU | anemia, unspecified | | | | ONCOLOGY CLINIC [address] | [place] | iron deficiency | | | | [place] | [address] | anemia type (Primary | | | | [place] [address] | [phone] | Dx) | | | | [phone] | | | +--------+ + + + [...] as of this encounter Plan of Treatment +--------+ + + + + | Date | Type | Specialty | Care Team | Description | +--------+ + + + + | 11/24/ | Hospital | Oncology | Brian Dominguez, | | | 2019 | Encounter | | [address] | | | | | | [place] | | | | | | [address] | | | | | | [phone] | | | | | | | | +--------+ + + + + documented as of this encounter Visit Diagnoses + + | Diagnosis | + + | Iron deficiency anemia, unspecified iron deficiency anemia type - Primary | + + documented in this encounter"
--- OUTSIDE RECORDS SUMMARY | ~2018-11-20 | XMS | Encounter Summary ---
Demographics + + + | Address | [address] | | | [place] [address] | + + + | Home Phone | | + + + | Preferred Language | Unknown | + + + | Marital Status | | + + + | Sabianist Affiliation | 1069 | + + + | Race | Unknown | + + + | Ethnic Group | Unknown | + + + Author + + + | Author | [facility] | | | and [place] | + + + | Organization | [facility] | | | and [place] | + + + | Address | Unknown | + + + | Phone | Unavailable | + + + Support + + + + + | Name | Relationship | Address | Phone | + + + + + | Lesvia Jernigan | ECON | [address] | | | | | [place] | | | | | [address] | | + + + + + | Lesvia Roberts | ECON | Unknown | | + + + + + | Jef Jernigan | ECON | Unknown | | + + + + + Care Team Providers + +------+ + | Care Intellectual Property Paralegal Name | Role | Phone | + [...] [address] | | | | | [place] OFFICE | Chirag Winston | [place] | | | | | OUTPATIENT | J[place]I, | [place] | | | | | VISIT 25 | [place] [address] | [address] | | | | | MINUTES | Phone: | Phone: | | | | | | [phone] | [phone] | | | | | | Fax: | Fax: | | | | | | [phone] | [phone] | + + + + + + + Encounter Details +--------+ + + + + | Date | Type | Department | Care Team | Description | +--------+ + + + + | 11/17/ | Hospital | [facility] | Brian Dominguez, | Iron deficiency | | 2018 | Encounter | [facility] | MD Jessy FU | anemia, unspecified | | | | ONCOLOGY CLINIC [address] | [place] | iron deficiency | | | | [place] | [address] | anemia type (Primary | | | | [place] [address] | [phone] | Dx) | | | | [phone] | | | +--------+ + + + [...] [place] | | | | | | [address] | | | | | | [phone] | | | | | | | | +--------+ + + + + documented as of this encounter Visit Diagnoses + + | Diagnosis | + + | Iron deficiency anemia, unspecified iron deficiency anemia type - Primary | + + documented in this encounter"
--- OUTSIDE RECORDS SUMMARY | ~2018-11-20 | XMS | Clinical Summary ---
Demographics + + + | Address | [address] | | | [place] [address] | + + + | Home Phone | | + + + | Preferred Language | Unknown | + + + | Marital Status | | + + + | Mandaeism Affiliation | 1069 | + + + | Race | Unknown | + + + | Ethnic Group | Unknown | + + + Author + + + | Author | [facility] [facility] | + + + | Organization | [facility] [employer] | + + + | Address [...] Team Providers + +------+ + | Care Superintendent Gas Distribution Name | Role | Phone | + [...] | | warfarin (Hx left Atrial myxoma), [facility]. | | 75yo WF, [...] + + + | Ulcer with gangrene ([facility]) | 06/21/20 | | | | 11 [...] | | | | | | [place] [address] | | | | | | [phone] | | | | | | | [...] +------+-------+ + | MEDICARE | MEDICA | [id number] | | | [address] | | | RE | | | | [place] [address] | | | IP-OP | | | | | + +--------+ +------+-------+ + | COMMERCIAL OTHER | COMMER | [id number] | | | | | | CIAL [...] | Self | [birth year] Home: | [address] | | | al/Fam | | 1940 | [phone] | [place] | | | dulce maria | | | [phone] | [address] | + +--------+ +--------+ + +
--- OUTSIDE RECORDS SUMMARY | ~2018-11-20 | XMS | Clinical Summary ---
Demographics + + + | Address | [address] | | | [place] [address] | + + + | Home Phone | | + + + | Preferred Language | Unknown | + + + | Marital Status | | + + + | Restorationism Affiliation | 1069 | + + + | Race | Unknown | + + + | Ethnic Group | Unknown | + + + Author + + + | Author | [facility] | | | and [place] | + + + | Organization | [facility] | | | and [place] | + + + | Address | Unknown | + + + | Phone | Unavailable | + + + Support + + + + + | Name | Relationship | Address | Phone | + + + + + | Lesvia Jernigan | ECON | [address] | | | | | [place] | | | | | [address] | | + + + + + | Lesvia Roberts | ECON | Unknown | | + + + + + | Jef Jernigan | ECON | Unknown | | + + + + + Care Team Providers + +------+ + | Care Sheet Hanger Name | Role | Phone | + [...] 0 | | | Activ | | [facility] | | | | | | e [...] [place] | | | | | | [address] | | | | | | [phone] | | | | | | | [...] | | 11/19/ | [id number] | | [id number]: Qty: | c | Eye | - ALCN | | 2020 | .15.0 | | 1 on 04/20/2017 by Jeremy, | | | | | | /[id number] | | Tony Sparks MD | | | | | | 412 | | | | | | | | 168 / | + +--------+--------+ +--------+--------+--------+ | Lens Ultrasert [id number] - | Generi | | [facility] | | 05/21/ | [id number] | | [id number]: Qty: | c | | - ALCN | | 2019 | .15.5 | | 1 on 06/01/2017 by Jeremy, | | | | | | /[id number] | | Tony Sparks MD | | [...] +--------+ +---------+--------+ | MEDICARE | MEDICA | [id number] | 12/21/19 | [phone] | | Medica | | | RE | | 05-Pre | 5 | | re | | | PART A | | sent | | | | | | AND B | | | | | | + +--------+ +--------+ +---------+--------+ | [employer] | [employer]AT | [id number] | 01/21/20 | | | Indemn | [...] Person | Self | [birth year] | [address] | | | al/Fam | | 1940 | [phone] | [place] | | | dulce mar[place] | | | 2 (Home) | [address] | + +--------+ +--------+ + + Advance Directives Patient has advance care planning documents, and code status on file. For more information, please contact:[facility] [place] [address] + + + + + | Code [...]
--- OUTSIDE RECORDS SUMMARY | ~2018-11-20 | XMS | Clinical Summary ---
Demographics + + + | Address | [address] | | | [place] [address] | + + + | Home Phone | | + + + | Preferred Language | Unknown | + + + | Marital Status | | + + + | Scientologist Affiliation | Unknown | + + + [...] Team Providers + +------+ + | Care Night Nurse Name | Role | Phone | + +------+ + PP | Unavailable | + +------+ + Source Comments SHANITA is fully live on both [facility] and [facility] InPatient.[facility]ly [facility] Allergies Not on File Medications [...]
--- OUTSIDE RECORDS SUMMARY | ~2018-11-20 | XMS | Encounter Summary ---
Demographics + + + | Address | [address] | | | [place] [address] | + + + | Home Phone | | + + + | Preferred Language | Unknown | + + + | Marital Status | | + + + | Amish Affiliation | Unknown | + + + | Race | Unknown | + + + | Ethnic Group | Other Race | + + + Author + + + | Author | [facility] | + + + | Organization | [facility] | + + + | Address | Unknown | + + + | Phone | Unavailable | + + + Care Team Providers + +------+ + | Care Sales Team Member Name | Role | Phone | + [...] | | Mone Gabriel | [place] [address] | | | | | [address] | [phone] | | | | | [place], [place] | | | | | | [address] | | | | | | [phone] | | | +--------+ + + + [...]
--- OUTSIDE RECORDS SUMMARY | ~2018-11-20 | XMS | Encounter Summary ---
Demographics + + + | Address | [address] | | | [place] [address] | + + + | Home Phone | | + + + | Preferred Language | Unknown | + + + | Marital Status | | + + + | Advent Affiliation | Unknown | + + + | Race | Unknown | + + + | Ethnic Group | Other Race | + + + Author + + + | Author | [facility] | + + + | Organization | [facility] | + + + | Address | Unknown | + + + | Phone | Unavailable | + + + Care Team Providers + +------+ + | Care Escrow Processor Name | Role | Phone | + +------+ + PCP | Unavailable | + +------+ + Reason for Visit + + + | Reason | Comments | + + + | Refill Request | | + + + Encounter Details +--------+--------+ + + + | Date | Type | Department | Care Team | Description | +--------+--------+ + + + | 08/28/ | Refill | [facility] | Tony Craft, | Refill Request | | 2015 | | Medical Clinic | [address] | | | | | Mone Gabriel | [place] [address] | | | | | [address] | [phone] | | | | | [place], [place] | | | | | | [address] | | | | | | [phone] | | | +--------+--------+ + + + [...]
--- OUTSIDE RECORDS SUMMARY | ~2018-11-20 | XMS | Clinical Summary ---
Demographics + + + | Address | [address] | | | [place] [address] | + + + | Home Phone | | + + + | Preferred Language | Unknown | + + + | Marital Status | | + + + | Voodoo Affiliation | 1069 | + + + | Race | Unknown | + + + | Ethnic Group | Unknown | + + + Author + + + | Author | [facility] | + + + | Organization | [employer] | + + + | Address [...] Team Providers + +------+ + | Care [employer] Name | Role | Phone | + [...] | | warfarin (Hx left Atrial myxoma), [facility]. 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
--- OUTSIDE RECORDS SUMMARY | ~2018-11-20 | XMS | Encounter Summary ---
Demographics + + + | Address | [address] | | | [place] [address] | + + + | Home Phone | | + + + | Preferred Language | Unknown | + + + | Marital Status | | + + + | Pentecostalism Affiliation | Unknown | + + + [...] Team Providers + +------+ + | Care Metal Hardener Name | Role | Phone | + [...] | | Mone Gabriel | [place] [address] | | | | | [address] | [phone] | | | | | [place], [place] | | | | | | [address] | | | | | | [phone] | | | +--------+--------+ + + + [...]
--- OUTSIDE RECORDS SUMMARY | ~2018-11-20 | XMS | Encounter Summary ---
Demographics + + + | Address | [address] | | | [place] [address] | + + + | Home Phone | | + + + | Preferred Language | Unknown | + + + | Marital Status | | + + + | Scientologist Affiliation | Unknown | + + + | Race | Unknown | + + + | Ethnic Group | Other Race | + + + Author + + + | Author | [facility] | + + + | Organization | [facility] | + + + | Address | Unknown | + + + | Phone | Unavailable | + + + Care Team Providers + +------+ + | Care Caregivers Non Medical Name | Role | Phone | + [...] | [address]one [address] | [place] [address] | | | | | [address] | [phone] | | | | | [employer], [place] | | | | | | [address] | | | | | | [phone] | | | +--------+ + + + [...]
--- OUTSIDE RECORDS SUMMARY | 2018-11-20 08:42 | XMS ---
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 Care History Medical/Surgical 04/28/2018 [facility] - Patient is currently established with [facility]. If patient is seen in the ED during business hours. Please contact [facility] at [facility]. Care Recommendation: This patient has had 5 [...] providing care. E.D. VISIT COUNT (12 MO.) 3 [facility]. TOTAL 3 NOTE: Visits indicate total known visits. 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 - Allergy status to narcotic agent status - Unspecified asthma, uncomplicated - Unspecified atrial fibrillation - Personal history of pulmonary embolism - Weakness 04/27/2018 17:13 [place] [place] TYPE: Emergency [...] aureus infection - Chronic atrial fibrillation - 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
[2018-11-20] MEDS ORDERED: DOXYCYCLINE MO100 MG PO (08:52)
--- NOTE | 2018-11-20 15:01 | EKG ---
[facility] [address] [facility] [place] [address] Signed Atrial fibrillation with rapid ventricular response ST \T\ T wave abnormality, consider inferior ischemia ST \T\ T wave abnormality, consider anterolateral ischemia Abnormal ECG When compared with ECG of 28-OCT-2018 13:20, T wave inversion now evident in Inferior leads T wave inversion now evident in Lateral leads Confirmed by TAYLER CARO DO ([id number]) on 11/20/2018 3:00:45 PM Electronically Signed By: TAYLER CARO DO 11/20/18 1501 PATIENT NAME: SHARON CORTEZ Electrocardiogram DATE OF : 40 PHYSICIAN: TAYLER CARO DO REPORT #: [id number] REPORT IS CONFIDENTIAL AND NOT TO BE RELEASED WITHOUT AUTHORIZATION
== END 2018-11-20 11:40 | disposition short-term general hospital (02) ==
LOC: ED 08:39
DX: K92.2 Gastrointestinal hemorrhage, unspecified (principal); D64.9 Anemia, unspecified; R79.1 Abnormal coagulation profile; J45.909 Unspecified asthma, uncomplicated; I48.91 Unspecified atrial fibrillation; I10 Essential (primary) hypertension; Z90.49 Acquired absence of other specified parts of digestive tract; Z90.710 Acquired absence of both cervix and uterus; Z88.1 Allergy status to other antibiotic agents; Z88.5 Allergy status to narcotic agent; Z88.8 Allergy status to other drugs, medicaments and biological substances; Z79.01 Long term (current) use of anticoagulants; Z79.899 Other long term (current) drug therapy
CPT/HCPCS: 36430; 80053; 85025; 85610; 86850; 86870; 86900; 86901; 86920; 86927; 93005; 93010; 99285-25; C9113; C9132; J2405; J2550; J3430; J7040; J7060; P9016

== ENCOUNTER 2020-04-26 20:19 | Emergency (ER) | payer MEDICARE, OTHER ==
[~2020-04-26] VITALS: Ht 165.1 cm; Wt 59.0 kg
[~2020-04-26 20:19] MED LIST changes: +DOXYCYCLINE MO100 MG PO; +ELIQUIS5 MG PO; +GABAPENTIN100 MG PO
--- OUTSIDE RECORDS SUMMARY | 2020-04-26 20:22 | XMS ---
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 Care History Medical/Surgical 04/28/2018 [facility] - Patient is currently established with [facility]. If patient is seen in the ED during business hours. Please contact CHWs at [facility]. Care Recommendation: This patient has had [...] providing care. E.D. VISIT COUNT (12 MO.) 1 S[place]VI[place]O Neil TOTAL 1 NOTE: Visits indicate total known visits. ED/UCC VISIT TRACKING (12 MO.) 04/26/2020 20:20 [place] TYPE: Emergency COMPLAINT: - RAPID HEART RATE INPATIENT VISIT TRACKING (12 MO.) No inpatient visits to display in this time frame [id number]
--- NOTE | 2020-04-27 14:15 | EKG ---
[facility] [address] [facility] [place] [address] Signed Atrial fibrillation with premature ventricular or aberrantly conducted complexes Incomplete right bundle branch block Possible Anteroseptal infarct , age undetermined ST \T\ T wave abnormality, consider lateral ischemia Abnormal ECG When compared with ECG of 20-NOV-2018 08:59, Incomplete right bundle branch block is now present Borderline criteria for Anteroseptal infarct are now present Confirmed by MUSHTAQ HALLMAN MD ([id number]) on 04/27/2020 2:15:22 PM Electronically Signed By: MUSHTAQ HALLMAN MD 04/27/20 1415 PATIENT NAME: SHARON CORTEZ Electrocardiogram DATE OF : 40 PHYSICIAN: MUSHTAQ HALLMAN MD REPORT #: [id number] REPORT IS CONFIDENTIAL AND NOT TO BE RELEASED WITHOUT AUTHORIZATION
== END 2020-04-26 21:32 | disposition home or self-care (01) ==
LOC: ED 20:19
DX: I48.91 Unspecified atrial fibrillation (principal); I10 Essential (primary) hypertension; J45.909 Unspecified asthma, uncomplicated; Z88.1 Allergy status to other antibiotic agents; Z88.8 Allergy status to other drugs, medicaments and biological substances; Z88.5 Allergy status to narcotic agent; Z79.899 Other long term (current) drug therapy
CPT/HCPCS: 71045; 80053; 80162; 83735; 84484; 85025; 85610; 93005; 93010; 99285-25

== ENCOUNTER 2020-06-15 12:16 | Emergency (ER) | payer MEDICARE, OTHER ==
[~2020-06-15] VITALS: Ht 165.1 cm; Wt 59.0 kg
--- OUTSIDE RECORDS SUMMARY | 2020-06-15 12:20 | XMS ---
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 Care History Medical/Surgical 04/30/2020 [facility] Patient seen after clinic hours.\T\nbsp; No follow up with PCP Dr. Goldman yet.\ T\nbsp; 04/28/2018 [facility] - Patient is currently established with [facility]. If patient is seen in the ED during business hours. Please contact CHWs at [facility]. Care Recommendation: This patient has had 5 or more Emergency Department visits in the last 12 months.\T\nbsp; Patient requires education on the scope and purpose of the ED as an acute care provider not a Primary Care Provider and should not be utilized for chronic conditions.\T\nbsp; These are guidelines and the provider should exercise clinical judgment when providing care. [place] VISIT COUNT (12 MO.) 2 SILVIANO Neil TOTAL 2 NOTE: Visits indicate total known visits. ED/UCC VISIT TRACKING (12 MO.) 06/15/2020 12:17 [place] TYPE: Emergency COMPLAINT: - WEAKNESS, HEADACHE 04/26/2020 20:[address] 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
== END 2020-06-15 16:20 | disposition home or self-care (01) ==
LOC: ED 12:16
DX: K52.9 Noninfective gastroenteritis and colitis, unspecified (principal); I10 Essential (primary) hypertension; J45.909 Unspecified asthma, uncomplicated; I48.91 Unspecified atrial fibrillation; Z88.1 Allergy status to other antibiotic agents; Z88.8 Allergy status to other drugs, medicaments and biological substances; Z88.5 Allergy status to narcotic agent; Z79.899 Other long term (current) drug therapy
CPT/HCPCS: 80053; 80162; 85025; 99284

== ENCOUNTER 2020-09-11 18:34 | Emergency (ER) | payer MEDICARE, OTHER ==
[~2020-09-11] VITALS: Ht 165.1 cm; Wt 59.0 kg
--- OUTSIDE RECORDS SUMMARY | 2020-09-11 18:36 | XMS ---
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 Care History Medical/Surgical 04/30/2020 [facility] Patient seen after clinic hours.\T\nbsp; No follow up with PCP Dr. Goldman yet.\ T\nbsp; 04/28/2018 [facility] - Patient is currently established with [facility]. If patient is seen in the ED during business hours. Please contact CHWs at [facility]. Care Recommendation: This patient has [...] providing care. [place] VISIT COUNT (12 MO.) 3 SILVIANO Neil TOTAL 3 NOTE: Visits indicate total known visits. 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 - Allergy status to other antibiotic agents - Noninfective gastroenteritis and colitis, unspecified - Allergy status to narcotic agent - Headache, unspecified - Allergy status to other antibiotic agents - Essential (primary) hypertension 04/26/2020 20:20 [place] TYPE: Emergency COMPLAINT: - RAPID HEART RATE DIAGNOSES: - Unspecified atrial fibrillation - Allergy status to narcotic agent - Allergy status to other drugs, medicaments and biological substances - Unspecified asthma, uncomplicated - Other skilled nursing (current) drug therapy - Essential (primary) hypertension - Allergy status to other antibiotic agents INPATIENT VISIT TRACKING (12 MO.) No inpatient visits to display in this time frame [id number]
[2020-09-11] MEDS ORDERED: TOBRAMYCIN-DEXAM5 ML OPTH (18:59)
[2020-09-11] MEDS ORDERED: LOPERAMIDE2 MG PO (18:59)
[2020-09-11] MEDS ORDERED: VENTOLIN HFA18 GM INH (19:00)
--- NOTE | 2020-09-13 13:47 | EKG ---
[facility] [address] [facility] [place] [address] Signed Atrial fibrillation with premature ventricular or aberrantly conducted complexes Incomplete right bundle branch block Septal infarct (cited on or before 26-APR-2020) ST \T\ T wave abnormality, consider lateral ischemia Abnormal ECG When compared with ECG of 26-APR-2020 20:27, Questionable change in initial forces of Septal leads ST more depressed in Inferior leads QT has lengthened Confirmed by OLIVA GOLDMAN MD ([id number]) on 09/13/2020 1:47:42 PM Electronically Signed By: OLIVA GOLDMAN MD 09/13/20 1347 PATIENT NAME: SHARON CORTEZ Electrocardiogram DATE OF : 40 PHYSICIAN: OLIVA GOLDMAN MD REPORT #: [id number] REPORT IS CONFIDENTIAL AND NOT TO BE RELEASED WITHOUT AUTHORIZATION
== END 2020-09-12 00:52 | disposition home or self-care (01) ==
LOC: ED 18:34
DX: R51.9 Headache, unspecified (principal); I10 Essential (primary) hypertension; J45.909 Unspecified asthma, uncomplicated; I48.91 Unspecified atrial fibrillation; Z88.1 Allergy status to other antibiotic agents; Z88.8 Allergy status to other drugs, medicaments and biological substances; Z88.5 Allergy status to narcotic agent; Z79.899 Other long term (current) drug therapy
CPT/HCPCS: 70450; 70496; 80053; 85025; 85610; 85730; 99284-25; J1170; J1200; J1885; J2405; J2765; J7030; Q9967

== ENCOUNTER 2020-09-17 12:37 | Emergency (ER) | payer MEDICARE, OTHER ==
[~2020-09-17] VITALS: Ht 165.1 cm; Wt 61.2 kg
[~2020-09-17 12:37] MED LIST changes: +LOPERAMIDE2 MG PO
--- OUTSIDE RECORDS SUMMARY | 2020-09-17 12:40 | XMS ---
PreManage Notification: SHARON CORTEZ Security Stoner Out Events No recent Security Events currently on file CRITERIA MET - Group Notification - [facility] - Has Care Guidelines - [facility] - 2 Visits in 30 Days CARE PROVIDERS KAMERON SANTIAGO Internal Medicine 04/28/2018-Current PHONE: [phone] OLIVA GOLDMAN Internal Medicine 10/29/2018-Current PHONE: [phone] Keo has no Care Guidelines for this patient. Care History Medical/Surgical 04/30/2020 [facility] Patient seen after clinic hours.\T\nbsp; No follow up with PCP Dr. Billy jeronimo.\ T\nbsp; 04/28/2018 [facility] - Patient is currently established with [facility]. If patient is seen in the ED during business hours. Please contact CHWs at [facility]. Care Recommendation: This patient has had 5 or more Emergency Department visits in the last 12 months.\T\nbsp; Patient requires education on the scope and purpose of the ED as an acute care provider not a Primary Care Provider and should not be utilized for chronic conditions.\T\nbsp; These are guidelines and the provider should exercise clinical judgment when providing care. [place] VISIT COUNT (12 MO.) 4 SILVIANO Neil TOTAL 4 NOTE: Visits indicate total known visits. ED/UCC VISIT TRACKING (12 MO.) 09/17/2020 12:37 [place] TYPE: Emergency COMPLAINT: - HEADACHE, WEAKNESS, CONSTIPATION 09/11/2020 18:34 [place] TYPE: Emergency COMPLAINT: - HEADACHE DIAGNOSES: - Headache, unspecified - Allergy status to narcotic agent - Allergy status to other antibiotic agents - Other penitentiary (current) drug therapy - Unspecified asthma, uncomplicated - Unspecified atrial fibrillation - Essential (primary) hypertension - Allergy status to other drugs, medicaments and biological substances 06/15/2020 12:17 [place] TYPE: Emergency COMPLAINT: - WEAKNESS, HEADACHE DIAGNOSES: - Allergy status to other drugs, medicaments and biological substances - Allergy status to other drugs, medicaments and biological substances - Headache, unspecified - Unspecified asthma, uncomplicated - Allergy status to narcotic agent - Unspecified atrial fibrillation - Other penitentiary (current) drug therapy - Allergy status to other antibiotic agents - Noninfective gastroenteritis and colitis, unspecified - Allergy status to narcotic agent - Headache, unspecified - Allergy status to other antibiotic agents - Essential (primary) hypertension 04/26/2020 20:20 [place] TYPE: Emergency COMPLAINT: - RAPID HEART RATE DIAGNOSES: - Allergy status to narcotic agent - Unspecified atrial fibrillation - Allergy status to narcotic agent - Allergy status to other drugs, medicaments and biological substances - Allergy status to other antibiotic agents - Allergy status to other drugs, medicaments and biological substances - Unspecified asthma, uncomplicated - 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
[2020-09-17] MEDS ORDERED: HYDROXYZINE HCL10 MG PO (16:09)
[2020-09-17] MEDS ORDERED: DULOXETINE HCL30 MG PO (16:09)
--- NOTE | 2020-09-17 19:16 | EKG ---
[facility] [address] [facility] [place] [address] Signed Atrial fibrillation Left axis deviation Nonspecific ST and T wave abnormality Abnormal ECG When compared with ECG of 11-SEP-2020 18:58, Significant changes have occurred Confirmed by OLIVA GOLDMAN MD ([id number] on 09/17/2020 7:16:14 PM Electronically Signed By: OLIVA GOLDMAN MD 09/17/20 1916 PATIENT NAME: SHARON CORTEZ Electrocardiogram DATE OF : 40 PHYSICIAN: OLIVA GOLDMAN MD REPORT #: [id number] REPORT IS CONFIDENTIAL AND NOT TO BE RELEASED WITHOUT AUTHORIZATION
== END 2020-09-17 16:30 | disposition home or self-care (01) ==
LOC: ED 12:37
DX: F41.9 Anxiety disorder, unspecified (principal); I10 Essential (primary) hypertension; J45.909 Unspecified asthma, uncomplicated; I48.91 Unspecified atrial fibrillation; Z86.711 Personal history of pulmonary embolism; Z86.718 Personal history of other venous thrombosis and embolism; Z88.1 Allergy status to other antibiotic agents; Z88.5 Allergy status to narcotic agent; Z88.8 Allergy status to other drugs, medicaments and biological substances; Z79.899 Other long term (current) drug therapy; Z79.01 Long term (current) use of anticoagulants
CPT/HCPCS: 80053; 81001; 83735; 84484; 85025; 93005; 93010; 96374; 96375; 99284-25; J1200; J2060; J2765; J7030

== ENCOUNTER 2024-10-21 12:34 | Emergency (ER) | payer MEDICARE, OTHER ==
[~2024-10-21] VITALS: Ht 165.1 cm; Wt 64.1 kg
[~2024-10-21 12:34] MED LIST changes: +DULOXETINE HCL30 MG PO; +K-TAB ER20 MEQ PO; +LOSARTAN POTASS25 MG PO; +MACULAR HEALTH1 EACH PO; +SERTRALINE HCL25 MG PO; +TRIAMCINOLONE A15 G1 TOP; +VITAMIN D210 MCG PO
[2024-10-21 14:28] LABS: BASOPHILS 1.3 % (0-2); EOSINOPHILS 1.5 % (0-6); HEMATOCRIT 22.9 % (35.0-50.0); HEMOGLOBIN 6.9 g/dL (12.0-18.0); LYMPHOCYTES 19.9 % (24-44); MCHC 30.1 g/dl (30-36); MCV 69.9 fl (81-99); MONOCYTES 7.1 % (0-12); NEUTROPHILS 70.2 % (39-80); PLATELET COUNT 162 K/uL (140-440); RBC 3.28 M/ul (4.3-5.7); RDW 17.7 (10.5-15.0)
[2024-10-21 14:41] LABS: ALBUMIN 3.4 g/dL (3.4-5.0); ALBUMIN/GLOBULIN RATIO 1.31 (1.1-2.4); BILIRUBIN, TOTAL 0.5 mg/dL (0.2-1.0); BUN/CREATININE RATIO 27.55 (6.0-28.6); CALCIUM 8.7 mg/dL (8.5-10.1); CREATININE, SERUM 0.98 mg/dL (0.55-1.02)
[2024-10-21 15:00] LABS: ABO B; ANTIBODY SCREEN NEGATIVE; RH POSITIVE
[2024-10-21 15:54] LABS: IS CROSSMATCH COMPATIBLE
[2024-10-21] MEDS ORDERED: ACETAMINOPHEN 325 MG TAB PO ONE (20:30)
[2024-10-21 20:40] VITALS: BP 121/66
== END 2024-10-21 20:40 | disposition home or self-care (01) ==
LOC: ED 12:34
PROVIDERS: Emergency Medicine
DX: D64.9 Anemia, unspecified (principal); I10 Essential (primary) hypertension; J45.909 Unspecified asthma, uncomplicated; Z79.899 Other long term (current) drug therapy; Z88.1 Allergy status to other antibiotic agents; Z88.5 Allergy status to narcotic agent
CPT/HCPCS: 36415; 36430; 80053; 85025; 85060; 86850; 86900; 86901; 86922; 99284-25; A9270; P9016